=== PATIENT | male | born 1940 | race Hispanic/Latino ===

== ENCOUNTER 2018-09-06 21:03 | Inpatient (IN) | payer MEDICARE ==
[2018-09-06 22:40] LABS: #Eosinphils 0.2 thou/uL (0.0-0.7); #Lymphocytes 1.8 thou/uL (1.20-3.40); #Monocytes 0.9 thou/uL (0.11-0.59); #Neutrophils 6.1 thou/uL (1.40-6.50); %Basophils 0.4 % (0.0-1.0); %Lymphocytes 20.1 % (21.0-51.0); %Monocytes 10.2 % (0.0-10.0); %Neutrophils 67.4 % (42.0-75.0); Mean Corpuscular HGB CONC 32.5 g/dL (32.0-36.0); Mean Corpuscular Hemoglobin 30.7 pg (27.0-31.0); Mean Corpuscular Volume 94.4 fL (78.0-98.0); Mean Platelet Volume 7.2 fL (7.4-10.4); Platelet Count 238 thou/uL (130-400); RBC Distribution Width 12.5 % (11.5-14.5); Red Blood Cell (RBC) Count 4.56 mill/uL (4.70-6.10); White Blood Cell (WBC) Count 9.1 thou/uL (4.8-10.8)
[2018-09-06] MEDS ORDERED: Ondansetron PF 4 MG/2 ML Vial ONE (22:49)
[2018-09-06] MEDS ORDERED: Famotidine/PF 20 mg/2ml Vial ONE (22:49)
[2018-09-06 23:04] LABS: ALT (SGPT) 94 U/L (8-55); AST (SGOT) 46 U/L (5-34); Alkaline Phosphatase 135 U/L (40-150); Anion Gap 11 mmol/L (10-20); BUN (Urea Nitrogen) 26 mg/dL (8.4-25.7); Bilirubin, Total 0.3 mg/dL (0.2-1.2); Calc. Creatinine Clearance 0 mL/min (70-130); Calcium 8.5 mg/dL (7.8-10.44); Carbon Dioxide 29 mmol/L (23-31); Chloride 94 mmol/L (98-107); Estimated GFR-MDRD 60; Globulin 3.8 g/dL (2.4-3.5); Glucose 139 mg/dL (83-110); Lipase 47 U/L (8-78); Potassium 4.1 mmol/L (3.5-5.1); Protein, Total 7.8 g/dL (5.8-8.1); Sodium 130 mmol/L (136-145)
[2018-09-06 23:35] LABS: CKMB 2.6 ng/mL (0-6.6); Troponin I Less than 0.010 ng/mL (< 0.028)
[2018-09-06] MEDS ORDERED: Metoclopramide HCl 10 MG/2 ML VIAL ONE (23:50)
[2018-09-06] MEDS ORDERED: Pantoprazole 40 MG VIAL ONE (23:50)
[2018-09-06] MEDS ORDERED: Water For Inject, Bacteriostat 0 ML ONE (23:51)
[2018-09-07] MEDS ORDERED: Lactated Ringer's 1,000 ML IV SCH (04:00)
[2018-09-07] MEDS ORDERED: Ondansetron ODT 4 MG TAB SL PRN (04:00)
[2018-09-07] MEDS ORDERED: Acetaminophen 325 MG TAB PO PRN (04:00)
[2018-09-07] MEDS ORDERED: Ondansetron PF 4 MG/2 ML Vial IVP PRN (04:00)
[2018-09-07 04:05] VITALS: BMI 27.8
[2018-09-07] MEDS ORDERED: Prevnar 13-Val Conj/PF 0.5 ML SYRINGE IM ONE (09:00)
[2018-09-07] MEDS: Lisinopril 10 MG TAB PO SCH (09:35)
[2018-09-07] MEDS: Pantoprazole 40 MG VIAL IVP SCH ×2 (09:35→20:48)
[2018-09-07] MEDS: Tamsulosin HCl 0.4 MG CAP PO SCH (09:36)
[2018-09-07] MEDS: Primidone 250 MG TAB PO SCH ×2 (09:36→20:48)
[2018-09-07 09:49] LABS: Hemoglobin 11.9 g/dL (14.0-18.0)
--- NOTE | 2018-09-07 11:59 | HP ---
DATE OF ADMISSION: 09/07/2018 PRIMARY CARE PHYSICIAN: Yolanda Marroquin in [place]. HISTORY OF PRESENT ILLNESS: The patient presented to the ER on 09/06/2018 for evaluation of vomiting, diarrhea, nausea, reports vomiting brown fluid coffee ground in appearance, of last week and reports hiccups since last Thursday. He was seen at the ED at [facility] on 09/05/2018. Patient reports he had a CT scan, lab work and was sent home with the recommendation for a GI consult. Patient continued to have nausea, vomiting, had one episode of diarrhea and presented to the ER at [place] for further evaluation. Daughter is at bedside and reports the patient has not had any nausea, vomiting , diarrhea since they were admitted in the early hours of this morning. The patient reports abdominal pain has resolved. Denies any nausea currently. Patient did have a positive guaiac and was admitted for further evaluation to the observation unit. PAST MEDICAL HISTORY: Includes epilepsy. The patient is legally blind, has hypertension, hyperlipidemia, BPH, seasonal allergies, and GERD. CVA several years ago with some dysphagia that required a feeding tube, but was eventually removed and the patient is able to feed himself at this point. Daughter thinks EGD and colonoscopy may have been done a year ago at [facility]. PAST SURGICAL HISTORY: Includes a cholecystectomy. SOCIAL HISTORY: The patient lives at home, is cared for by daughters and a niece. Denies drinking, denies smoking, although he used to smoke in the 1980s. Denies any illicit drug use. FAMILY HISTORY: Not contributory in this case. REVIEW OF SYSTEMS: Constitutional: Denies chills, denies fever. Eyes: Denies eye pain. He is legally blind. ENT: Denies rhinorrhea, sore throat. Cardiovascular: Denies any chest pain, palpitations. Respiratory: Denies cough, shortness of breath. Gastrointestinal: Did report abdominal pain, epigastric yesterday, diarrhea, did report nausea, vomiting. Denies constipation. Genitourinary: Male, denies dysuria or hematuria. Musculoskeletal: Denies back pain. Daughter reports patient does fall occasionally due to near blindness, denies current injury or neck pain. Skin: Denies rash, skin changes. Neurologic: Denies headache. Denies any focal changes. Hematologic: Denies abnormal blood clotting. ALLERGY: PCNS MEDICATIONS: Mariposa 180mg po daily, Lisinopril 10mg po daily, Zofran 4mg po q6h prn, Phenytoin 100mg po bid, Primadone 250mg po bid, Flomax 0.4mg po daily PHYSICAL EXAMINATION: VITAL SIGNS: Temperature is 99, pulse is 76, respirations are 20, pulse ox 95 on room air, blood pressure 143/67. CONSTITUTIONAL: The patient is nontoxic appearing. The patient appears pain free. He is alert and oriented to person, place and time. HEAD: Atraumatic, normocephalic. ENT: Mucous membranes are moist. NECK: Normal range of motion. Trachea is midline. No tenderness. RESPIRATORY: Breath sounds are clear bilaterally. No rales or rhonchi noted. CARDIAC: Heart rate is a regular rate and rhythm. S1 and S2. No gallops or murmurs noted. ABDOMEN: Nontender, no distention, no mass, no peritoneal signs. BACK: Normal range of motion, no tenderness. EXTREMITIES: Upper extremity: Normal range of motion. Sensation intact. Radial pulses normal. Lower extremity: Normal range of motion. Sensation intact. Pedal pulse intact. No edema noted. NEUROLOGICAL: Oriented to person, place and time. SKIN: Warm, dry, normal in color. LABORATORY DATA: First troponin is negative. CK-MB is 2.6. CK is 94. Gastric positive for occult blood. Sodium 130, potassium 4.1, chloride 94, carbon dioxide 29, anion gap is 11, BUN is 26, creatinine is 1.18, estimated GFR 60, glucose 139. Globulin is 3.8, alkaline phosphatase is 135, AST is 46, ALT is 94. White blood cell count is 9.1, hemoglobin is 14, hematocrit is 43, platelets is 238. ASSESSMENT AND PLAN: 1. Intractable nausea and vomiting. Patient will be kept n.p.o., given maintenance fluids, IV Zofran as needed. 2. Possible upper gastrointestinal bleed, the patient will have serial H&H performed, given protonix, GI consult ordered. 3. Hypertension: The patient will be maintained on home medications. 4. Hyperlipidemia. The patient will have lipids tested. 5. Epilepsy. The patient will be maintained on Dilantin. 6. BPH: The patient will be maintained on Flomax as prescribed. 7. DVT prophalyxis: [facility] stay will depend on clinical course. MTDD
[2018-09-07] MEDS ORDERED: Lidocaine 1% PF 5 ML VIAL ONE (13:42)
[2018-09-07] MEDS ORDERED: PROPOFOL 200 MG/20 ML VIAL ONE (13:42)
--- NOTE | 2018-09-07 16:34 | PDOC.EVN ---
Event Note - Event Note Event Note: patient interviewed and examined. clinical course discussed with Helena Velázquez RAYON CONER. agree with Tx and plans
[2018-09-07] MEDS ORDERED: Ondansetron HCl/PF 4 MG/2 ML Vial IVP PRN (16:37)
[2018-09-07] MEDS: Dextrose 5 % And 0.9 % NaCl 1,000 ML IV SCH (17:58)
--- NOTE | 2018-09-07 20:50 | CON ---
DATE OF CONSULTATION: 09/07/2018 CONSULTING PROVIDER: Melissa REZA HISTORY OF PRESENT ILLNESS: Mr. Barker is a pleasant 78-year-old gentleman who was admitted to the [facility] yesterday evening for persistent vomiting. Apparently, this started about 5 days ago, last Thu, today is Thursday, with some vomiting. He had emesis of brown fluid and hiccups since Thursday. He states, it started after eating a very large sweet potato he cooked on the grill. He is able to handle secretions and did not like it got stuck. He went to an outside ER and had a CAT scan of abdo men and pelvis. This was at one of the [facility] facilities, for upper abdominal pain. There received IV fluids, Zofran, and an outpatient referral to Gastroenterology. When he did not improve , his family brought him here. At the outside facility, he did have a CAT scan of the abdomen and pe lvis which showed inflammation in the distal esophagus and somewhat distended stomach and atheroscler otic vessel disease and enlarged prostate as well. There were no acute abdominal processes ongoing. Atherosclerotic vessel disease did involve his coronary arteries as well. He did have some small in guinal hernias bilaterally with no herniation of bowel. His labs there were notable for normal comp metabolic profile, lipase of 214, white count of 8, hemoglobin of 14 and platelet count of 232 with n ormal differential. Here in the emergency room, he was treated with IV Protonix, Reglan, Pepcid, Zof ran, and a liter of fluid, and he was subsequently admitted. Here, his hemoglobin yesterday was 14 a nd then 11.9 today. His baseline hemoglobin has been here in 2012 was 11.4 and 11.2. His comp met p rofile is notable for sodium of 130, glucose 139, AST and ALT are 46 and 94, albumin of 4, lipase of 47. Lactate 0.6. CK-MB 2.6, troponin less than 0.01. CK of 94. Presently, the nurses note he has not thrown up since yesterday and he confirms the same. His epigastric pain is better. PAST MEDICAL HISTORY: He has had seizures since age 19, has been on chronic medications. He is lega lly blind. Family is not clear. Recently, he has some hypertension, hyperlipidemia, BPH, and previo us TURP. He has a history of reflux about a year ago. He had a feeding tube for a while. Apparentl y, he had a stroke which required a feeding tube for while. He was in rehabilitation for a couple of months. There is a previous history of EGD at this hospital with severe LA grade D esophagitis back in 2013 with a similar presentation. SOCIAL HISTORY: Patient lives at home in the [facility], lives with daughter. They note, he gaspar s not drink alcohol, really never had. He stopped smoking in the 80s, does not use drugs. FAMILY HISTORY: Negative for colon cancer or liver disease. REVIEW OF SYSTEMS: Patient denies any dysphagia or odynophagia this point in time. Denies any chest pain or shortness of breath. Denies any melena or rectal bleeding. Denies sore throat, headaches. ALLERGIES: PENICILLIN. MEDICATIONS: Mariposa, lisinopril, Zofran, Dilantin, primidone, Flomax. MEDICATIONS HERE: He is on Protonix 40 IV q.12 hours., Dilantin 100 mg b.i.d., primidone, normal kyler ine flushes, and tamsulosin. OBJECTIVE: VITAL SIGNS: Temperature is 98.7, pulse 82, respirations 12, O2 sat 92-93% and blood pressure 151/69 . HEENT: Oropharynx without lesions. NECK: Supple without adenopathy. LUNGS: Clear. HEART: Regular rate and rhythm without clicks or murmurs. ABDOMEN: Soft, nontender. There is no rebound or guarding. X-ray from outside facility, report reviewed and labs here and there reviewed. ASSESSMENT: Coffee-ground emesis and slight drop in hemoglobin back to around his baseline. Remote history of severe esophagitis with some thickening of distal esophagus on CAT scan at the outside [facility] yesterday or the day before. This is likely esophagitis, probably from reflux, but other etiol ogies to be considered. Peptic ulcer is be a possibility and NSAID use. RECOMMENDATIONS: 1. Start IV fluids. 2. EGD today. Risks, benefits, and possible complications discussed with the patient's daughter and the patient, and they wished to proceed.
--- NOTE | 2018-09-08 04:45 | OP ---
DATE OF SERVICE: 09/07/2018 PREPROCEDURE DIAGNOSES: 1. Recurrent vomiting. 2. Epigastric pain. 3. Abnormal CAT scan of the chest with thickened esophagus. 4. Coffee-ground emesis with mild anemia. POSTPROCEDURE DIAGNOSES: 1. Severe distal esophagitis consistent with LA grade D erosive esophagitis, biopsied to rule out Ca ndida or other infections. 2. Normal stomach. 3. Normal duodenum. RECOMMENDATIONS: IV Protonix b.i.d., liquid diet, advance as tolerated, patient needs to be on lifel charisma PPIs after discharge. PROCEDURE IN DETAIL: After the patient was informed of the risks, benefits, and possible complicatio ns of endoscopy including perforation, bleeding, reactions to medication and aspiration, informed con sent was obtained. The patient was brought to the endoscopy suite where he was sedated in gradual fa shion. Once he was comfortable, a bite block was placed in the incisural orifice. The endoscope was advanced through the esophagus, stomach, second and third portion of the duodenum and slowly removed . The esophagus notable for severe erosive esophagitis, circumferential in the distal third of the e sophagus, and then streaks in the middle third. Biopsies were taken to rule out infection or other e tiologies, but this appears to be severe reflux esophagitis, may be this is a injury. No overt strictures were seen, but , we could not really evaluate the esophagus much further. The scope was advanced into the stomach, which was normal in forward and retroflexed views. The GE junction w as normal in retroflexed views. The distal stomach was normal. The duodenum was normal to the third portion. The stomach was then desufflated. The scope was removed. The patient tolerated the proce dure well with no complications.
[2018-09-08] MEDS: Dextrose 5 % And 0.9 % NaCl 1,000 ML IV SCH ×2 (05:44→16:53)
--- NOTE | 2018-09-08 07:28 | PDOC.PN ---
- Subjective Encounter Start Date: 09/08/18 Encounter Start Time: 07:26 Subjective: no nausea/vomiting - Objective MAR Reviewed: Yes Vital Signs & Weight: Vital Signs (12 hours) Temp Pulse Resp BP Pulse Ox 09/08/18 04:00 97.9 F 66 20 150/67 H 95 09/07/18 19:45 97.5 F L 67 18 184/78 H 95 Weight Admit Weight 172 lb 12.8 oz Weight 172 lb 12.8 oz I&O: 09/07/18 09/08/18 09/09/18 06:59 06:59 06:59 Intake Total 63 1012 Output Total 275 1450 Balance -212 -438 Result Diagrams: 09/07/18 17:34 09/06/18 22:35 Phys Exam - Physical Examination Neck: no JVD Respiratory: clear to auscultation bilateral Cardiovascular: RRR, no significant murmur Gastrointestinal: soft, non-tender, positive bowel sounds Musculoskeletal: no edema Dx/Plan (1) Anemia due to blood loss, acute Code(s): D62 - ACUTE POSTHEMORRHAGIC ANEMIA Status: Acute (2) HTN (hypertension) Code(s): I10 - ESSENTIAL (PRIMARY) HYPERTENSION Status: Acute (3) Seizure disorder Code(s): G40.909 - EPILEPSY, UNSP, NOT INTRACTABLE, WITHOUT STATUS EPILEPTICUS Status: Acute (4) erosive esophagitis with bleeding Status: Acute - Plan post EGD, on PPI q12h iv -: no recurrent hemetemasis -: discuss with GI * .
[2018-09-08] MEDS: Tamsulosin HCl 0.4 MG CAP PO SCH (09:20)
[2018-09-08] MEDS: Pantoprazole 40 MG VIAL IVP SCH ×2 (09:20→20:44)
[2018-09-08] MEDS: Primidone 250 MG TAB PO SCH ×2 (09:20→20:45)
[2018-09-08] MEDS: Lisinopril 10 MG TAB PO SCH (09:20)
[2018-09-08] MEDS ORDERED: Labetalol HCl 100 MG/20 ML VIAL SLOW IVP PRN (15:38)
--- NOTE | 2018-09-09 08:12 | PDOC.PN ---
- Subjective Encounter Start Date: 09/09/18 Encounter Start Time: 08:11 Subjective: no nausea, abd pain - Objective MAR Reviewed: Yes Vital Signs & Weight: Vital Signs (12 hours) Temp Pulse Resp BP Pulse Ox 09/09/18 07:16 98.1 F 64 22 H 152/68 H 95 09/09/18 04:00 98.8 F 70 19 166/77 H 95 09/08/18 23:10 98 09/08/18 20:45 97.8 F 70 18 178/84 H 99 Weight Admit Weight 172 lb 12.8 oz Weight 164 lb 2 oz I&O: 09/08/18 09/09/18 09/10/18 06:59 06:59 06:59 Intake Total 2115 880 1500 Output Total 3500 2800 775 Balance -1385 -1920 725 Result Diagrams: 09/07/18 17:34 09/06/18 22:35 Phys Exam - Physical Examination Neck: no JVD Respiratory: clear to auscultation bilateral Cardiovascular: RRR, no significant murmur Gastrointestinal: soft, positive bowel sounds Musculoskeletal: no edema Dx/Plan (1) Anemia due to blood loss, acute Code(s): D62 - ACUTE POSTHEMORRHAGIC ANEMIA Status: Acute (2) HTN (hypertension) Code(s): I10 - ESSENTIAL (PRIMARY) HYPERTENSION Status: Acute (3) Seizure disorder Code(s): G40.909 - EPILEPSY, UNSP, NOT INTRACTABLE, WITHOUT STATUS EPILEPTICUS Status: Acute (4) erosive esophagitis with bleeding Status: Acute - Plan change PPI to po -: advance diet -: cbc- FU * .
[2018-09-09 09:03] LABS: #Eosinphils 0.4 thou/uL (0.0-0.7); #Lymphocytes 1.8 thou/uL (1.20-3.40); #Monocytes 0.7 thou/uL (0.11-0.59); #Neutrophils 4.5 thou/uL (1.40-6.50); %Basophils 0.5 % (0.0-1.0); %Lymphocytes 24.3 % (21.0-51.0); %Monocytes 9.8 % (0.0-10.0); %Neutrophils 60.4 % (42.0-75.0); Hemoglobin 13.5 g/dL (14.0-18.0); Mean Corpuscular Hemoglobin 30.7 pg (27.0-31.0); Mean Corpuscular Volume 95.9 fL (78.0-98.0); Mean Platelet Volume 7.8 fL (7.4-10.4); Platelet Count 245 thou/uL (130-400); RBC Distribution Width 12.5 % (11.5-14.5); White Blood Cell (WBC) Count 7.4 thou/uL (4.8-10.8)
[2018-09-09] MEDS: Tamsulosin HCl 0.4 MG CAP PO SCH (10:10)
[2018-09-09] MEDS: Lisinopril 10 MG TAB PO SCH (10:10)
[2018-09-09] MEDS: Primidone 250 MG TAB PO SCH (10:10)
[2018-09-09] MEDS: Dextrose 5 % And 0.9 % NaCl 1,000 ML IV SCH (11:57)
[2018-09-09] MEDS ORDERED: hydrALAZINE 20 MG/ML VIAL SLOW IVP PRN (12:20)
--- NOTE | 2018-09-09 14:40 | DIS ---
DATE OF ADMISSION: 09/07/2018 DATE OF DISCHARGE: 09/09/2018 PRIMARY CARE PROVIDER: Libertad Marroquin M.D. DISCHARGE DISPOSITION: Home. FINAL DIAGNOSES: Gastrointestinal hemorrhage, erosive esophagitis, anemia secondary to acute blood l oss, hypertension, epilepsy. DISCHARGE MEDICATIONS: New, Protonix 40 mg p.o. b.i.d. for a month, Zestril 10 mg a day, Flomax 0.4 mg a day, Dilantin 100 mg twice a day, primidone 250 mg twice a day, Mariposa 180 daily p.r.n., Zofran 4 mg q.4 hours p.r.n. ALLERGIES: PENICILLIN. DIET: Heart healthy. PENDING AT THE TIME OF DISCHARGE: Pathology specimen on esophageal biopsy. CODE STATUS: FULL. HOSPITAL COURSE: The patient was admitted to [facility] through [facility]. The patient presented with nausea, vomiting up coffee-ground emesis. His initial studies, whi te count 9.1, hemoglobin 14.0. He was made n.p.o., put on IV fluids, IV Zofran. GI was consulted fo r possible upper GI bleed. He was continued on his usual medicines with sips of water. His hemoglob in dropped down to 11.9. Consultation with Dr. Lavon Solo on the day of admission and an EGD revealed severe distal esophagitis, erosive. He was placed on Protonix 40 twice a day. The patholo gy specimen revealed active esophagitis, no Pyle's epithelium, no fungal organisms, no viral cytop athic effects, no malignancy. He is being discharged now. His vital signs are stable. His hemoglob in has come back up to 13.5. He is doing well. He is desirous of going home. Vital signs are stabl e. Cardiorespiratory exam and abdominal exam was normal. FOLLOWUP: Would by [facility], Dr. Solo to be arranged. He has been requested to follow up with his PCP in 1 week. Return to the hospital for any further nausea, vomiting with c offee-ground emesis or black tarry stools.
[2018-09-09 16:38] VITALS: TEMP 98.2
[2018-09-09 20:15] VITALS: BP 168/66
== END 2018-09-09 20:10 | disposition home or self-care (01) | DRG 381 ==
LOC: ERS 21:03 → 2SW 09-07 03:15 → OBSVTOIN 09-07 17:10 → 2NO 09-07 19:46 → SURG B 09-08 23:09
PROVIDERS: ADMIT Internal Medicine; ATTEND Internal Medicine
PROC: 0DB58ZX Excision of Esophagus, Via Natural or Artificial Opening Endoscopic, Diagnostic (ICD-10-PCS; principal; 2018-09-07)
DX: K22.11 Ulcer of esophagus with bleeding (principal); D62 Acute posthemorrhagic anemia; H54.8 Legal blindness, as defined in USA; G40.909 Epilepsy, unspecified, not intractable, without status epilepticus; I10 Essential (primary) hypertension; E78.5 Hyperlipidemia, unspecified; N40.0 Benign prostatic hyperplasia without lower urinary tract symptoms; K21.0 Gastro-esophageal reflux disease with esophagitis; I69.391 Dysphagia following cerebral infarction; R13.10 Dysphagia, unspecified; Z90.49 Acquired absence of other specified parts of digestive tract; K40.20 Bilateral inguinal hernia, without obstruction or gangrene, not specified as recurrent; Z91.81 History of falling
CPT/HCPCS: 36415; 80053; 82271; 82553; 83690; 84484; 85014; 85018; 85025; 88305; 88312; 88313; 90471; 90670; 93005; 96361; 96365; 96375; C9113; G0009; J2405; J2765; S0028

== ENCOUNTER 2021-02-27 13:34 | Inpatient (IN) | payer MEDICARE ==
[2021-02-27 14:03] LABS: Hemoglobin 13.2 g/dL (14.0-18.0); Mean Corpuscular HGB CONC 31.9 g/dL (32.0-36.0); Mean Corpuscular Hemoglobin 24.8 pg (27.0-31.0); Mean Corpuscular Volume 77.9 fL (78.0-98.0); Mean Platelet Volume 8.9 fL (7.4-10.4); Platelet Count 311 thou/uL (130-400); RBC Distribution Width 15.7 % (11.5-14.5); Red Blood Cell (RBC) Count 5.33 mill/uL (4.70-6.10); White Blood Cell (WBC) Count 20.1 thou/uL (4.8-10.8)
[2021-02-27 14:08] LABS: PTT 29.1 sec (22.9-36.1); Prothrombin Time 13.5 sec (12.0-14.7)
[2021-02-27 14:23] LABS: Band 30 % (5-11); Lymphocytes 7 % (21-51); MDiff Complete? YES; Monocytes 8 % (0-10); Neutrophil 52 % (42-75); Platelet Morphology Comment Appears Adequate; Polychromasia SLIGHT = 2-3 cells (100X) (0-2/hpf); Reactive Lymphocytes 3 % (0-10); Target Cells SLIGHT = 2-5 cells (100X) (0-1/hpf)
[2021-02-27 14:32] LABS: ALT (SGPT) 66 U/L (8-55); AST (SGOT) 164 U/L (5-34); Albumin 4.3 g/dL (3.4-4.8); Alkaline Phosphatase 115 U/L (40-110); Anion Gap 18 mmol/L (10-20); BUN (Urea Nitrogen) 32 mg/dL (8.4-25.7); Bilirubin, Total 0.6 mg/dL (0.2-1.2); Calc. Creatinine Clearance 0 mL/min (70-130); Carbon Dioxide 19 mmol/L (23-31); Chloride 103 mmol/L (98-107); Globulin 4.2 g/dL (2.4-3.5); Glucose 152 mg/dL (83-110); Potassium 4.6 mmol/L (3.5-5.1); Protein, Total 8.5 g/dL (5.8-8.1); Sodium 135 mmol/L (136-145)
[2021-02-27 14:51] LABS: CKMB 80.1 ng/mL (0-6.6)
[2021-02-27] MEDS ORDERED: Aspirin 300 MG Suppository ONE (16:10)
[2021-02-27] MEDS ORDERED: Sodium Chloride 0.9% 1,000 ML IV SCH (17:15)
[2021-02-27 18:08] LABS: Troponin I 0.138 ng/mL (< 0.028)
[2021-02-27 21:51] LABS: Troponin I 0.167 ng/mL (< 0.028)
[2021-02-27] MEDS: Sodium Chloride 0.9% 1,000 ML IV SCH (23:07)
[2021-02-28 00:26] LABS: Bacteria/HPF None Seen HPF (None Seen); Bilirubin Negative (Negative); Blood, Urine 3+ (Negative); Clarity Clear (Clear); Glucose, Urine (Dipstick) Normal (Negative); Ketone, Urine Negative (Negative); Leukocyte Negative Leu/uL (Negative); Nitrite Negative (Negative); Protein, Urine (Dipstick) 50 mg/dL (Neg-Trace); RBC/HPF 0-3 HPF (0-3); Specific Gravity, Urine 1.019 (1.002-1.036); Squamous Epithelial 0-3 HPF (0-3); Urobilinogen Normal mg/dL (Less than 2); WBC/HPF 0-3 HPF (0-3)
[2021-02-28] MEDS: Fosphenytoin Sodium 100 MG in Sodium Chloride 0.9% 50 ML IVPB SCH ×4 (01:22→23:37)
[2021-02-28 02:26] VITALS: BMI 29.9
[2021-02-28 05:04] LABS: SARS-CoV-2 PCR by NAA Not Detected (NotDetected)
[2021-02-28 06:25] LABS: ALT (SGPT) 64 U/L (8-55); AST (SGOT) 132 U/L (5-34); Albumin 3.5 g/dL (3.4-4.8); Alkaline Phosphatase 90 U/L (40-110); Anion Gap 14 mmol/L (10-20); BUN (Urea Nitrogen) 29 mg/dL (8.4-25.7); Bilirubin, Total 0.5 mg/dL (0.2-1.2); Calc. Creatinine Clearance 57 mL/min (70-130); Calcium 8.5 mg/dL (7.8-10.44); Carbon Dioxide 21 mmol/L (23-31); Cardiac Risk 2.2 (Less than 4.5); Chloride 107 mmol/L (98-107); Cholesterol 159 mg/dl (< 200 Desired); Globulin 3.9 g/dL (2.4-3.5); Glucose 141 mg/dL (83-110); HDL Cholesterol 73 mg/dL (>60 Neg Risk); LDL Cholesterol, Calculated 67 mg/dL; Potassium 3.9 mmol/L (3.5-5.1); Protein, Total 7.4 g/dL (5.8-8.1); Sodium 138 mmol/L (136-145); Triglycerides 93 mg/dL (Less than 150)
[2021-02-28 07:26] LABS: Hemoglobin 11.4 g/dL (14.0-18.0); Mean Corpuscular HGB CONC 29.5 g/dL (32.0-36.0); Mean Corpuscular Hemoglobin 23.2 pg (27.0-31.0); Mean Corpuscular Volume 78.7 fL (78.0-98.0); Mean Platelet Volume 8.9 fL (7.4-10.4); Platelet Count 276 thou/uL (130-400); RBC Distribution Width 15.8 % (11.5-14.5); Red Blood Cell (RBC) Count 4.93 mill/uL (4.70-6.10); White Blood Cell (WBC) Count 14.4 thou/uL (4.8-10.8)
[2021-02-28 08:01] LABS: #Eosinphils 0.2 thou/uL (0.0-0.7); #Lymphocytes 2.3 thou/uL (1.20-3.40); #Monocytes 1.9 thou/uL (0.11-0.59); #Neutrophils 9.8 thou/uL (1.40-6.50); %Basophils 0.3 % (0.0-1.0); %Eosinophils 1.5 % (0.0-10.0); %Lymphocytes 16.3 % (21.0-51.0); %Monocytes 13.5 % (0.0-10.0); %Neutrophils 68.5 % (42.0-75.0)
[2021-02-28 08:02] LABS: Band 5 % (5-11); Eosinophils 2 % (0-10); Hypochromia SLIGHT = 6-15 cells (100X) (0-5/hpf); Lymphocytes 21 % (21-51); MDiff Complete? YES; Microcytosis SLIGHT = 6-15 cells (100X) (0-5/hpf); Monocytes 13 % (0-10); Neutrophil 59 % (42-75); Polychromasia SLIGHT = 2-3 cells (100X) (0-2/hpf)
[2021-02-28] MEDS: Enoxaparin Sodium 40 MG/0.4 ML SYRINGE SC SCH (08:35)
[2021-02-28] MEDS: Sodium Chloride 0.9% 1,000 ML IV SCH ×3 (08:40→23:34)
[2021-02-28] MEDS: Aspirin 81 mg Enteric Coated Tablet PO SCH (08:44)
[2021-02-28] MEDS: Tamsulosin HCl 0.4 MG CAP PO SCH (08:44)
[2021-02-28] MEDS ORDERED: Finasteride 5 MG TAB PO SCH (09:00)
[2021-02-28] MEDS ORDERED: Insulin Regular 300 UNITS/3 ML VIAL SC PRN (13:27)
[2021-02-28] MEDS ORDERED: Dextrose 5% in Water 1,000 ML IV PRN (13:27)
[2021-02-28] MEDS ORDERED: Dextrose 50% Abboject 50 ML SYRINGE SLOW IVP PRN (13:27)
[2021-02-28] MEDS: Acetaminophen 325 MG TAB PO PRN (14:21)
[2021-02-28] MEDS: Primidone 250 MG TAB PO SCH (21:04)
[2021-03-01 05:50] LABS: ALT (SGPT) 60 U/L (8-55); AST (SGOT) 93 U/L (5-34); Albumin 3.2 g/dL (3.4-4.8); Alkaline Phosphatase 83 U/L (40-110); Anion Gap 11 mmol/L (10-20); BUN (Urea Nitrogen) 19 mg/dL (8.4-25.7); Bilirubin, Total 0.4 mg/dL (0.2-1.2); Calc. Creatinine Clearance 74 mL/min (70-130); Calcium 8.4 mg/dL (7.8-10.44); Carbon Dioxide 23 mmol/L (23-31); Cardiac Risk 2.4 (Less than 4.5); Chloride 105 mmol/L (98-107); Cholesterol 153 mg/dl (< 200 Desired); Globulin 4.1 g/dL (2.4-3.5); Glucose 141 mg/dL (83-110); HDL Cholesterol 63 mg/dL (>60 Neg Risk); LDL Cholesterol, Calculated 67 mg/dL; Magnesium 2.1 mg/dL (1.6-2.6); Potassium 4.2 mmol/L (3.5-5.1); Protein, Total 7.3 g/dL (5.8-8.1); Sodium 135 mmol/L (136-145); Triglycerides 114 mg/dL (Less than 150)
[2021-03-01] MEDS: Enoxaparin Sodium 40 MG/0.4 ML SYRINGE SC SCH (09:13)
[2021-03-01] MEDS: Tamsulosin HCl 0.4 MG CAP PO SCH (09:14)
[2021-03-01] MEDS: Aspirin 81 mg Enteric Coated Tablet PO SCH (09:14)
[2021-03-01] MEDS: Finasteride 5 MG TAB PO SCH (09:14)
[2021-03-01] MEDS: Loratadine 10 MG TAB PO SCH (09:14)
[2021-03-01] MEDS: Primidone 250 MG TAB PO SCH ×2 (09:14→21:24)
[2021-03-01] MEDS: Fosphenytoin Sodium 100 MG in Sodium Chloride 0.9% 50 ML IVPB SCH (09:27)
[2021-03-01] MEDS: Acetaminophen 325 MG TAB PO PRN (16:09)
[2021-03-02 05:44] LABS: #Basophils 0.1 thou/uL (0.0-0.2); #Eosinphils 0.7 thou/uL (0.0-0.7); #Lymphocytes 1.8 thou/uL (1.20-3.40); #Monocytes 0.9 thou/uL (0.11-0.59); #Neutrophils 8.1 thou/uL (1.40-6.50); %Basophils 0.7 % (0.0-1.0); %Eosinophils 5.9 % (0.0-10.0); %Lymphocytes 15.3 % (21.0-51.0); %Neutrophils 70.1 % (42.0-75.0); Hemoglobin 10.8 g/dL (14.0-18.0); Mean Corpuscular HGB CONC 30.5 g/dL (32.0-36.0); Mean Corpuscular Hemoglobin 24.4 pg (27.0-31.0); Mean Platelet Volume 8.8 fL (7.4-10.4); Platelet Count 254 thou/uL (130-400); RBC Distribution Width 15.6 % (11.5-14.5); Red Blood Cell (RBC) Count 4.44 mill/uL (4.70-6.10); White Blood Cell (WBC) Count 11.5 thou/uL (4.8-10.8)
[2021-03-02 06:06] LABS: ALT (SGPT) 53 U/L (8-55); AST (SGOT) 55 U/L (5-34); Albumin 3.2 g/dL (3.4-4.8); Alkaline Phosphatase 81 U/L (40-110); Anion Gap 12 mmol/L (10-20); BUN (Urea Nitrogen) 12 mg/dL (8.4-25.7); Bilirubin, Total 0.4 mg/dL (0.2-1.2); CK (CPK) 1483 U/L (30-200); Calc. Creatinine Clearance 76 mL/min (70-130); Calcium 8.4 mg/dL (7.8-10.44); Carbon Dioxide 27 mmol/L (23-31); Chloride 102 mmol/L (98-107); Globulin 3.6 g/dL (2.4-3.5); Glucose 141 mg/dL (83-110); Potassium 3.6 mmol/L (3.5-5.1); Protein, Total 6.8 g/dL (5.8-8.1); Sodium 137 mmol/L (136-145)
[2021-03-02] MEDS: Finasteride 5 MG TAB PO SCH (10:39)
[2021-03-02] MEDS: Primidone 250 MG TAB PO SCH ×2 (10:40→20:54)
[2021-03-02] MEDS: Loratadine 10 MG TAB PO SCH (10:40)
[2021-03-02] MEDS: Enoxaparin Sodium 40 MG/0.4 ML SYRINGE SC SCH (10:40)
[2021-03-02] MEDS: Tamsulosin HCl 0.4 MG CAP PO SCH (10:40)
[2021-03-02] MEDS: Aspirin 81 mg Enteric Coated Tablet PO SCH (10:40)
[2021-03-02] MEDS ORDERED: traMADol HCl 50 MG TAB PO PRN (16:22)
[2021-03-02] MEDS: Acetaminophen 325 MG TAB PO PRN (16:29)
[2021-03-03] MEDS: Finasteride 5 MG TAB PO SCH (08:43)
[2021-03-03] MEDS: Enoxaparin Sodium 40 MG/0.4 ML SYRINGE SC SCH (08:43)
[2021-03-03] MEDS: Lisinopril 10 MG TAB PO SCH (08:43)
[2021-03-03] MEDS: Loratadine 10 MG TAB PO SCH (08:43)
[2021-03-03] MEDS: Primidone 250 MG TAB PO SCH ×2 (08:43→21:54)
[2021-03-03] MEDS: metFORMIN 500 MG TAB PO SCH (08:43)
[2021-03-03] MEDS: Aspirin 81 mg Enteric Coated Tablet PO SCH (08:43)
[2021-03-03] MEDS: Tamsulosin HCl 0.4 MG CAP PO SCH (08:44)
[2021-03-03] MEDS: traMADol HCl 50 MG TAB PO PRN (11:16)
[2021-03-04 05:46] LABS: #Eosinphils 0.6 thou/uL (0.0-0.7); #Lymphocytes 1.9 thou/uL (1.20-3.40); #Monocytes 1.1 thou/uL (0.11-0.59); #Neutrophils 4.9 thou/uL (1.40-6.50); %Basophils 0.4 % (0.0-1.0); %Eosinophils 6.8 % (0.0-10.0); %Monocytes 13.3 % (0.0-10.0); %Neutrophils 57.5 % (42.0-75.0); Hemoglobin 11.2 g/dL (14.0-18.0); Mean Corpuscular HGB CONC 31.4 g/dL (32.0-36.0); Mean Corpuscular Volume 79.8 fL (78.0-98.0); Mean Platelet Volume 8.3 fL (7.4-10.4); Platelet Count 303 thou/uL (130-400); Red Blood Cell (RBC) Count 4.47 mill/uL (4.70-6.10); White Blood Cell (WBC) Count 8.5 thou/uL (4.8-10.8)
[2021-03-04 06:20] LABS: ALT (SGPT) 63 U/L (8-55); AST (SGOT) 53 U/L (5-34); Albumin 3.4 g/dL (3.4-4.8); Alkaline Phosphatase 89 U/L (40-110); Anion Gap 12 mmol/L (10-20); BUN (Urea Nitrogen) 10 mg/dL (8.4-25.7); Bilirubin, Total 0.4 mg/dL (0.2-1.2); CK (CPK) 503 U/L (30-200); Calc. Creatinine Clearance 69 mL/min (70-130); Calcium 8.7 mg/dL (7.8-10.44); Carbon Dioxide 29 mmol/L (23-31); Chloride 100 mmol/L (98-107); Dilantin 11.5 ug/mL (10.0-20.0); Globulin 3.8 g/dL (2.4-3.5); Glucose 138 mg/dL (83-110); Potassium 3.6 mmol/L (3.5-5.1); Protein, Total 7.2 g/dL (5.8-8.1); Sodium 137 mmol/L (136-145)
[2021-03-04] MEDS: Finasteride 5 MG TAB PO SCH (07:54)
[2021-03-04] MEDS: metFORMIN 500 MG TAB PO SCH (07:54)
[2021-03-04] MEDS: Aspirin 81 mg Enteric Coated Tablet PO SCH (07:54)
[2021-03-04] MEDS: Lisinopril 10 MG TAB PO SCH (07:54)
[2021-03-04] MEDS: Loratadine 10 MG TAB PO SCH (07:54)
[2021-03-04] MEDS: Primidone 250 MG TAB PO SCH ×3 (07:55→21:32)
[2021-03-04] MEDS: Tamsulosin HCl 0.4 MG CAP PO SCH (07:55)
[2021-03-04] MEDS: Enoxaparin Sodium 40 MG/0.4 ML SYRINGE SC SCH (07:55)
[2021-03-04] MEDS: traMADol HCl 50 MG TAB PO PRN (10:10)
[2021-03-04] MEDS ORDERED: Lisinopril 10 MG TAB PO SCH (17:00)
[2021-03-05] MEDS: metFORMIN 500 MG TAB PO SCH (08:17)
[2021-03-05] MEDS: Enoxaparin Sodium 40 MG/0.4 ML SYRINGE SC SCH (08:17)
[2021-03-05] MEDS: Finasteride 5 MG TAB PO SCH (08:17)
[2021-03-05] MEDS: Aspirin 81 mg Enteric Coated Tablet PO SCH (08:17)
[2021-03-05] MEDS: Primidone 250 MG TAB PO SCH (08:18)
[2021-03-05] MEDS: Loratadine 10 MG TAB PO SCH (08:18)
[2021-03-05] MEDS: Tamsulosin HCl 0.4 MG CAP PO SCH (08:18)
[2021-03-05] MEDS ORDERED: Lisinopril 10 MG TAB PO SCH (09:00)
[2021-03-05 15:35] VITALS: TEMP 97.7
[2021-03-05] MEDS: traMADol HCl 50 MG TAB PO PRN (16:05)
[2021-03-05 16:46] VITALS: BP 154/72
== END 2021-03-05 18:10 | DRG 101 ==
LOC: ERS 13:34 → ERHOLD 15:31 → 2SE 16:47 → OBSVTOIN 18:00 → 2SE 20:39
PROVIDERS: ADMIT Hospitalist; ATTEND Internal Medicine
DX: G40.919 Epilepsy, unspecified, intractable, without status epilepticus (principal); N17.9 Acute kidney failure, unspecified; M62.82 Rhabdomyolysis; G45.9 Transient cerebral ischemic attack, unspecified; D62 Acute posthemorrhagic anemia; E87.1 Hypo-osmolality and hyponatremia; N40.0 Benign prostatic hyperplasia without lower urinary tract symptoms; Z88.0 Allergy status to penicillin; E11.9 Type 2 diabetes mellitus without complications; Z86.73 Personal history of transient ischemic attack (TIA), and cerebral infarction without residual deficits; M19.90 Unspecified osteoarthritis, unspecified site; Z79.84 Long term (current) use of oral hypoglycemic drugs; E86.0 Dehydration; E88.09 Other disorders of plasma-protein metabolism, not elsewhere classified
CPT/HCPCS: 36415; 36416; 70450; 70551; 72125; 80053; 80061; 80185; 81001; 82550; 82553; 83735; 84484; 85025; 85610; 85730; 87635; 93005; 95712; 95819; 95957; 96365; G0378; J1650; J1815; Q2009; U0003; U0005

== ENCOUNTER 2022-03-03 12:17 | Inpatient (IN) | payer MEDICARE ==
[~2022-03-03 12:17] MED LIST: Iopamidol-370 76% 500 ML 1 ML ONE
[2022-03-03 12:48] LABS: #Basophils 0.1 thou/uL (0.0-0.2); #Eosinphils 0.3 thou/uL (0.0-0.7); #Lymphocytes 1.9 thou/uL (1.20-3.40); #Neutrophils 5.5 thou/uL (1.40-6.50); %Basophils 0.9 % (0.0-1.0); %Lymphocytes 21.6 % (21.0-51.0); %Monocytes 11.1 % (0.0-10.0); %Neutrophils 62.5 % (42.0-75.0); Hemoglobin 11.9 g/dL (14.0-18.0); Mean Corpuscular HGB CONC 31.5 g/dL (32.0-36.0); Mean Corpuscular Hemoglobin 25.3 pg (27.0-31.0); Mean Corpuscular Volume 80.5 fL (78.0-98.0); Mean Platelet Volume 7.9 fL (7.4-10.4); Platelet Count 273 thou/uL (130-400); RBC Distribution Width 14.4 % (11.5-14.5); Red Blood Cell (RBC) Count 4.68 mill/uL (4.70-6.10); White Blood Cell (WBC) Count 8.8 thou/uL (4.8-10.8)
[2022-03-03 13:05] LABS: ALT (SGPT) 29 U/L (8-55); AST (SGOT) 27 U/L (5-34); Alkaline Phosphatase 104 U/L (40-110); Anion Gap 15 mmol/L (10-20); BUN (Urea Nitrogen) 15 mg/dL (8.4-25.7); Bilirubin, Total 0.2 mg/dL (0.2-1.2); Calc. Creatinine Clearance 0 mL/min (70-130); Calcium 8.9 mg/dL (7.8-10.44); Carbon Dioxide 23 mmol/L (23-31); Chloride 97 mmol/L (98-107); Globulin 3.7 g/dL (2.4-3.5); Glucose 143 mg/dL (83-110); Lipase 46 U/L (8-78); Potassium 4.9 mmol/L (3.5-5.1); Protein, Total 7.7 g/dL (5.8-8.1); Sodium 130 mmol/L (136-145)
[2022-03-03 13:47] LABS: CKMB 3.3 ng/mL (0-6.6)
[2022-03-03] MEDS ORDERED: Enoxaparin Sodium 80 MG/0.8 ML SYRINGE ONE (15:54)
[2022-03-03 16:45] LABS: Troponin I 2.138 ng/mL (< 0.028)
[2022-03-03 17:15] LABS: Magnesium 1.9 mg/dL (1.6-2.6); Phosphorus 3.5 mg/dL (2.3-4.7)
[2022-03-03] MEDS ORDERED: Magnesium 2 GM/50 ML(in water) 2 GM in Premix Bag 1 BAG IVPB SCH (17:30)
[2022-03-03] MEDS ORDERED: Calcium Carbonate 500 MG ChewTAB PO PRN (17:54)
[2022-03-03] MEDS ORDERED: Acetaminophen 325 MG TAB PO PRN (17:54)
[2022-03-03] MEDS ORDERED: Senokot S 8.6-50 MG TAB PO PRN (17:54)
[2022-03-03] MEDS ORDERED: Morphine 2 MG/ML VIAL SLOW IVP PRN (18:11)
[2022-03-03] MEDS ORDERED: Nitroglycerin 0.4 MG TAB (25 Tab Bottle) SL PRN (18:11)
[2022-03-03] MEDS ORDERED: Aspirin 325 mg Enteric Coated Tablet PO SCH (18:30)
[2022-03-03] MEDS: Sodium Chloride 0.9% 1,000 ML IV SCH (18:32)
[2022-03-03] MEDS ORDERED: Labetalol HCl 100 MG/20 ML VIAL SLOW IVP PRN (18:34)
[2022-03-03] MEDS ORDERED: Dextrose 5% in Water 1,000 ML IV PRN (18:39)
[2022-03-03] MEDS ORDERED: Insulin Regular 300 UNITS/3 ML VIAL SC PRN ×2 (18:39)
[2022-03-03] MEDS ORDERED: Dextrose 50% Abboject 50 ML SYRINGE SLOW IVP PRN (18:39)
[2022-03-03 18:43] VITALS: BMI 26.9
[2022-03-03] MEDS ORDERED: Loratadine 10 MG TAB PO SCH (18:45)
[2022-03-03] MEDS: Nitroglycerin 2% Ointment 1 INCH/1 GM Packet TOP SCH (20:34)
[2022-03-03] MEDS: Atorvastatin Calcium 40 MG TAB PO SCH (20:35)
[2022-03-03] MEDS: Primidone 250 MG TAB PO SCH (20:37)
[2022-03-03] MEDS: Senokot S 8.6-50 MG TAB PO SCH (20:37)
[2022-03-03] MEDS: Tamsulosin HCl 0.4 MG CAP PO SCH (20:38)
[2022-03-04 00:15] LABS: SARS-CoV-2 PCR by NAA Not Detected (NotDetected)
[2022-03-04] MEDS: Nitroglycerin 2% Ointment 1 INCH/1 GM Packet TOP SCH ×3 (03:18→18:07)
[2022-03-04 04:54] LABS: #Basophils 0.1 thou/uL (0.0-0.2); #Eosinphils 0.8 thou/uL (0.0-0.7); #Lymphocytes 2.6 thou/uL (1.20-3.40); #Monocytes 1.1 thou/uL (0.11-0.59); #Neutrophils 4.2 thou/uL (1.40-6.50); %Basophils 0.9 % (0.0-1.0); %Eosinophils 8.6 % (0.0-10.0); %Lymphocytes 30.1 % (21.0-51.0); %Monocytes 12.5 % (0.0-10.0); %Neutrophils 47.9 % (42.0-75.0); Hemoglobin 11.1 g/dL (14.0-18.0); Mean Corpuscular HGB CONC 32.2 g/dL (32.0-36.0); Mean Corpuscular Hemoglobin 26.2 pg (27.0-31.0); Mean Corpuscular Volume 81.3 fL (78.0-98.0); Mean Platelet Volume 7.8 fL (7.4-10.4); Platelet Count 285 thou/uL (130-400); RBC Distribution Width 14.4 % (11.5-14.5); Red Blood Cell (RBC) Count 4.24 mill/uL (4.70-6.10); White Blood Cell (WBC) Count 8.7 thou/uL (4.8-10.8)
[2022-03-04 04:57] LABS: Hemoglobin A1c 6.1 % (4.0-6.0)
[2022-03-04 05:13] LABS: Anion Gap 13 mmol/L (10-20); BUN (Urea Nitrogen) 12 mg/dL (8.4-25.7); Calc. Creatinine Clearance 60 mL/min (70-130); Calcium 8.7 mg/dL (7.8-10.44); Carbon Dioxide 25 mmol/L (23-31); Cardiac Risk 2.2 (Less than 4.5); Chloride 100 mmol/L (98-107); Cholesterol 164 mg/dl (< 200 Desired); Glucose 120 mg/dL (83-110); HDL Cholesterol 75 mg/dL (>60 Neg Risk); LDL Cholesterol, Calculated 75 mg/dL; Magnesium 2.3 mg/dL (1.6-2.6); Potassium 4.8 mmol/L (3.5-5.1); Sodium 133 mmol/L (136-145); Triglycerides 70 mg/dL (Less than 150)
[2022-03-04] MEDS ORDERED: Communication Order-Pharmacy FS SCH (08:15)
[2022-03-04] MEDS ORDERED: Midazolam HCl 2 mg/2 ml Vial ONE (08:50)
[2022-03-04] MEDS ORDERED: Fentanyl 100 MCG/2 ML VIAL ONE (08:50)
[2022-03-04] MEDS ORDERED: Finasteride 5 MG TAB PO SCH (09:00)
[2022-03-04] MEDS ORDERED: Loratadine 10 MG TAB PO SCH (09:00)
[2022-03-04] MEDS ORDERED: Aspirin 325 mg Enteric Coated Tablet PO SCH (09:00)
[2022-03-04] MEDS ORDERED: Iopamidol 370 76% 100 ML VIAL ONE (09:01)
[2022-03-04] MEDS ORDERED: Lidocaine 1% (PF) 30 ML VIAL ONE (09:17)
[2022-03-04] MEDS: Lisinopril 10 MG TAB PO SCH (09:25)
[2022-03-04] MEDS: Sodium Chloride 0.9% 1,000 ML IV SCH (09:25)
[2022-03-04] MEDS: Primidone 250 MG TAB PO SCH ×2 (09:26→21:24)
[2022-03-04] MEDS: Senokot S 8.6-50 MG TAB PO SCH ×2 (09:26→21:06)
[2022-03-04] MEDS ORDERED: Heparin 25,000 units/D5W 500 ML ONE (09:29)
[2022-03-04] MEDS ORDERED: Aspirin 81 mg Enteric Coated Tablet PO SCH (10:23)
[2022-03-04] MEDS ORDERED: Communication Order-Pharmacy FS ONE (12:21)
[2022-03-04 13:38] LABS: Troponin I 3.722 ng/mL (< 0.028)
[2022-03-04] MEDS ORDERED: Heparin 25,000 units/D5W 500 ML IV SCH (17:45)
[2022-03-04] MEDS ORDERED: Heparin 10,000 UNITS/ 10 ML VIAL SLOW IVP SCH (17:45)
[2022-03-04] MEDS: Atorvastatin Calcium 40 MG TAB PO SCH (21:06)
[2022-03-04] MEDS: Tamsulosin HCl 0.4 MG CAP PO SCH (21:07)
[2022-03-05 01:07] LABS: PTT 126.7 sec (22.9-36.1)
[2022-03-05] MEDS: Lisinopril 10 MG TAB PO SCH (05:21)
[2022-03-05] MEDS ORDERED: Albumin 5% 500 ML ONE (06:15)
[2022-03-05] MEDS ORDERED: Heparin 10,000 UNITS/1 ML VIAL 30,000 UNITS in Sodium Chloride 0.9% 1,000 ML FS SCH (06:30)
[2022-03-05] MEDS ORDERED: Midazolam HCl 5 mg/5 ml Vial ONE (07:12)
[2022-03-05] MEDS ORDERED: Fentanyl 250 MCG/5 ML VIAL ONE (07:13)
[2022-03-05] MEDS ORDERED: Potassium Chloride 60 MEQ/30 ML VIAL ONE (07:20)
[2022-03-05] MEDS ORDERED: DOPamine 400 MG/10 ML VIAL ONE (07:20)
[2022-03-05] MEDS ORDERED: Protamine Sulfate 50 MG/5 ML VIAL ONE (07:20)
[2022-03-05] MEDS ORDERED: Magnesium Sulfate 1 GM/2 ML VIAL ONE (07:20)
[2022-03-05] MEDS ORDERED: Vecuronium 10 MG VIAL ONE (07:20)
[2022-03-05] MEDS ORDERED: Heparin 30,000 units/30 ml VIAL ONE (07:20)
[2022-03-05] MEDS ORDERED: Thrombin 5000 UNITS/5 ML VIAL ONE (07:20)
[2022-03-05] MEDS ORDERED: Heparin 5,000 UNITS/ML VIAL ONE (07:20)
[2022-03-05] MEDS ORDERED: Lidocaine 2% PF 100 mg/5 ml Syringe ONE (07:20)
[2022-03-05] MEDS ORDERED: Cardioplegic Soln 1,000 ML BAG ONE (07:20)
[2022-03-05] MEDS ORDERED: Esmolol 100 MG/10 ML VIAL ONE (07:20)
[2022-03-05] MEDS ORDERED: Sodium Bicarb 50 MEQ/50 ML Abboject 8.4% SYRINGE ONE (07:20)
[2022-03-05] MEDS ORDERED: Mannitol 12.5 GM/50 ML ONE (07:20)
[2022-03-05] MEDS ORDERED: Calcium Chloride 1 GM/10 ML Abboject SYRINGE ONE (07:20)
[2022-03-05] MEDS ORDERED: Papaverine 60 MG/2 ML VIAL ONE (07:20)
[2022-03-05] MEDS ORDERED: PROPOFOL 200 MG/20 ML VIAL ONE (07:20)
[2022-03-05] MEDS ORDERED: Aminocaproic Acid 5 GM/20 ML VIAL ONE (07:20)
[2022-03-05] MEDS ORDERED: Clindamycin/D5W 900 mg/50 ml Premix Bag ONE (07:23)
[2022-03-05] MEDS ORDERED: PHENYLEPHRINE-NS 100 MCG/ML 10 ML SYRINGE ONE (09:55)
[2022-03-05] MEDS ORDERED: Phenylephrine 10 MG/ML VIAL ONE (09:55)
[2022-03-05] MEDS ORDERED: Albumin 5% 250 ML ONE (10:30)
[2022-03-05] MEDS ORDERED: Insulin Regular 300 UNITS/3 ML VIAL ONE (10:32)
[2022-03-05] MEDS ORDERED: Mag-Al 1200 mg/1200 mg/30 ML UDCUP PO PRN (11:06)
[2022-03-05] MEDS ORDERED: Bisacodyl 5 MG TAB PO PRN (11:06)
[2022-03-05] MEDS ORDERED: DOPamine 400 MG/D5W 250 ML 250 ML IVPB PRN (11:06)
[2022-03-05] MEDS ORDERED: Post-Op Insulin Drip Protocol IVPB ONE (11:06)
[2022-03-05] MEDS ORDERED: Nitroglycerin 50 MG/250 ML BOT 250 ML IVPB PRN (11:06)
[2022-03-05] MEDS ORDERED: niCARdipine 25 MG in Sodium Chloride 0.9% 250 ML 250 ML IVPB PRN (11:06)
[2022-03-05] MEDS ORDERED: Hetastarch 6% 500 ML 500 ML IVPB PRN (11:06)
[2022-03-05] MEDS ORDERED: Acetaminophen 325 MG TAB PO PRN (11:06)
[2022-03-05] MEDS ORDERED: Morphine 2 MG/ML VIAL SLOW IVP PRN (11:06)
[2022-03-05] MEDS ORDERED: Norepinephrine 8 MG/0.9% NS 250 ML IVPB PRN (11:06)
[2022-03-05] MEDS ORDERED: Bisacodyl 10 MG SUPP PR PRN (11:06)
[2022-03-05] MEDS ORDERED: Ondansetron PF 4 MG/2 ML Vial IVP PRN (11:06)
[2022-03-05] MEDS ORDERED: Guaifenesin DM 100-10/5 ML UDCUP PO PRN (11:06)
[2022-03-05] MEDS ORDERED: hydrALAZINE 20 MG/ML VIAL SLOW IVP PRN (11:06)
[2022-03-05] MEDS: Lactated Ringer's 1,000 ML IV SCH (11:15)
[2022-03-05 11:27] LABS: Actual Bicarbonate (HCO3a) 19.9 mEq/L (22-28); Base Excess (BEa) -5.1 mEq/L (-2.0 to +3.0); CO2 Tension 36.8 mmHg (35.0-45.0); Carboxyhemoglobin (COHb) 0.2 gm% (0.0-3.0); Hemoglobin (Hb) 11.4 g/dL (14.0-18.0); O2 Tension (PaO2), arterial 66.7 mmHg (> 60.0); Potassium - ABG Lab 3.93 mmol/L (3.70-5.30); pH, Arterial 7.35 (7.35-7.45)
[2022-03-05] MEDS ORDERED: HUMULIN R 100 UNITS in Sodium Chloride 0.9% 100 ML IVPB SCH (11:30)
[2022-03-05] MEDS ORDERED: Insulin Regular 300 UNITS/3 ML VIAL SC PRN (11:30)
[2022-03-05] MEDS ORDERED: Dextrose 50% Abboject 50 ML SYRINGE SLOW IVP PRN (11:30)
[2022-03-05] MEDS ORDERED: Dextrose 5% in Water 1,000 ML IV PRN (11:30)
[2022-03-05 11:32] LABS: Puncture Site Arterial Line
[2022-03-05 11:48] LABS: Hemoglobin 10.6 g/dL (14.0-18.0); Mean Corpuscular HGB CONC 30.9 g/dL (32.0-36.0); Mean Corpuscular Hemoglobin 25.3 pg (27.0-31.0); Mean Corpuscular Volume 81.8 fL (78.0-98.0); Mean Platelet Volume 7.7 fL (7.4-10.4); Platelet Count 176 thou/uL (130-400); RBC Distribution Width 14.4 % (11.5-14.5); White Blood Cell (WBC) Count 21.9 thou/uL (4.8-10.8)
[2022-03-05 11:51] LABS: INR-International Normal Ratio 1.3; Prothrombin Time 16.6 sec (12.0-14.7)
[2022-03-05 11:53] LABS: PTT 36.5 sec (22.9-36.1)
[2022-03-05 12:03] LABS: Band 22 % (5-11); Lymphocytes 4 % (21-51); MDiff Complete? YES; Monocytes 8 % (0-10); Neutrophil 66 % (42-75); Platelet Morphology Comment Appears Adequate; Polychromasia SLIGHT = 2-3 cells (100X) (0-2/hpf)
[2022-03-05 12:04] LABS: Anion Gap 12 mmol/L (10-20); BUN (Urea Nitrogen) 8 mg/dL (8.4-25.7); Calc. Creatinine Clearance 72 mL/min (70-130); Calcium 8.7 mg/dL (7.8-10.44); Carbon Dioxide 20 mmol/L (23-31); Chloride 107 mmol/L (98-107); Glucose 160 mg/dL (83-110); Potassium 3.9 mmol/L (3.5-5.1); Sodium 135 mmol/L (136-145)
[2022-03-05] MEDS: Potassium Chloride 20 MEQ/100 ML PREMIX BAG IVPB PRN ×2 (12:40→18:19)
[2022-03-05] MEDS: Clindamycin/D5W 900 MG in Premix Bag 1 BAG IVPB SCH ×2 (14:13→19:47)
[2022-03-05 17:43] LABS: Hemoglobin 9.8 g/dL (14.0-18.0)
[2022-03-05 18:59] LABS: Actual Bicarbonate (HCO3a) 20.5 mEq/L (22-28); Base Excess (BEa) -4.7 mEq/L (-2.0 to +3.0); CO2 Tension 38.4 mmHg (35.0-45.0); Calcium, Ionized (arterial) 1.16 mmol/L (1.12-1.30); Carboxyhemoglobin (COHb) 0.2 gm% (0.0-3.0); Hemoglobin (Hb) 10.8 g/dL (14.0-18.0); O2 Tension (PaO2), arterial 90.8 mmHg (> 60.0); Potassium - ABG Lab 3.95 mmol/L (3.70-5.30); Puncture Site Arterial Line; pH, Arterial 7.35 (7.35-7.45)
[2022-03-05] MEDS: Ketorolac Tromethamine 30 MG/ML VIAL IVP SCH (19:47)
[2022-03-05] MEDS: Atorvastatin Calcium 20 MG TAB PO SCH (19:48)
[2022-03-05] MEDS ORDERED: Famotidine/PF 20 mg/2ml Vial SLOW IVP SCH (21:00)
[2022-03-05] MEDS: Fosphenytoin Sodium 100 MG in Sodium Chloride 0.9% 100 ML IVPB SCH (22:23)
[2022-03-06] MEDS: Ketorolac Tromethamine 30 MG/ML VIAL IVP SCH (02:06)
[2022-03-06] MEDS: Clindamycin/D5W 900 MG in Premix Bag 1 BAG IVPB SCH ×2 (02:07→07:56)
[2022-03-06] MEDS: Lactated Ringer's 1,000 ML IV SCH ×2 (03:14→13:31)
[2022-03-06 04:35] LABS: #Lymphocytes 0.9 thou/uL (1.20-3.40); #Monocytes 1.7 thou/uL (0.11-0.59); #Neutrophils 13.5 thou/uL (1.40-6.50); %Basophils 0.1 % (0.0-1.0); %Eosinophils 0.2 % (0.0-10.0); %Lymphocytes 5.8 % (21.0-51.0); %Monocytes 10.4 % (0.0-10.0); %Neutrophils 83.5 % (42.0-75.0); Hemoglobin 9.6 g/dL (14.0-18.0); Mean Corpuscular HGB CONC 31.7 g/dL (32.0-36.0); Mean Platelet Volume 8.4 fL (7.4-10.4); Platelet Count 187 thou/uL (130-400); RBC Distribution Width 14.3 % (11.5-14.5); Red Blood Cell (RBC) Count 3.71 mill/uL (4.70-6.10); White Blood Cell (WBC) Count 16.1 thou/uL (4.8-10.8)
[2022-03-06 04:46] LABS: Anion Gap 12 mmol/L (10-20); BUN (Urea Nitrogen) 10 mg/dL (8.4-25.7); Calc. Creatinine Clearance 59 mL/min (70-130); Calcium 8.5 mg/dL (7.8-10.44); Carbon Dioxide 23 mmol/L (23-31); Chloride 107 mmol/L (98-107); Glucose 122 mg/dL (83-110); Potassium 4.5 mmol/L (3.5-5.1); Sodium 137 mmol/L (136-145)
[2022-03-06] MEDS ORDERED: Dextrose 50% Abboject 50 ML SYRINGE SLOW IVP PRN (06:28)
[2022-03-06] MEDS ORDERED: HumaLOG 300 UNITS/3 ML VIAL SC PRN (06:28)
[2022-03-06] MEDS ORDERED: Dextrose 5% in Water 1,000 ML IV PRN (06:28)
[2022-03-06] MEDS: Fosphenytoin Sodium 100 MG in Sodium Chloride 0.9% 100 ML IVPB SCH ×2 (09:02→17:02)
[2022-03-06] MEDS: Aspirin 325 MG TAB PO SCH (10:29)
[2022-03-06] MEDS: Polyethylene Glycol 3350 17 GM Packet PO SCH (10:29)
[2022-03-06] MEDS: Famotidine 20 MG TAB PO SCH ×2 (10:29→20:39)
[2022-03-06] MEDS ORDERED: Insulin Glargine 30 UNITS/0.3 ML VIAL SC PRN (11:20)
[2022-03-06] MEDS: traMADol HCl 50 MG TAB PO PRN ×3 (11:34→22:28)
[2022-03-06] MEDS: Tamsulosin HCl 0.4 MG CAP PO SCH (20:39)
[2022-03-06] MEDS: Atorvastatin Calcium 20 MG TAB PO SCH (20:39)
[2022-03-07] MEDS: Fosphenytoin Sodium 100 MG in Sodium Chloride 0.9% 100 ML IVPB SCH ×3 (01:26→17:17)
[2022-03-07] MEDS: Lactated Ringer's 1,000 ML IV SCH (03:43)
[2022-03-07 06:27] LABS: Hemoglobin 9.1 g/dL (14.0-18.0); Mean Corpuscular HGB CONC 31.5 g/dL (32.0-36.0); Mean Corpuscular Hemoglobin 26.2 pg (27.0-31.0); Mean Corpuscular Volume 83.3 fL (78.0-98.0); Mean Platelet Volume 8.5 fL (7.4-10.4); Platelet Count 210 thou/uL (130-400); RBC Distribution Width 15.3 % (11.5-14.5); Red Blood Cell (RBC) Count 3.47 mill/uL (4.70-6.10); White Blood Cell (WBC) Count 20.4 thou/uL (4.8-10.8)
[2022-03-07 06:39] LABS: Anion Gap 15 mmol/L (10-20); BUN (Urea Nitrogen) 21 mg/dL (8.4-25.7); Calc. Creatinine Clearance 46 mL/min (70-130); Calcium 8.5 mg/dL (7.8-10.44); Carbon Dioxide 18 mmol/L (23-31); Chloride 107 mmol/L (98-107); Glucose 173 mg/dL (83-110); Potassium 5.3 mmol/L (3.5-5.1); Sodium 135 mmol/L (136-145)
[2022-03-07 06:48] LABS: Band 12 % (5-11); Lymphocytes 13 % (21-51); MDiff Complete? YES; Monocytes 10 % (0-10); Neutrophil 65 % (42-75)
[2022-03-07] MEDS ORDERED: Nitroglycerin 0.4 MG TAB (25 Tab Bottle) SL PRN (07:53)
[2022-03-07] MEDS ORDERED: Mineral Oil ENEMA PR PRN (07:53)
[2022-03-07] MEDS ORDERED: Dextrose 50% Abboject 50 ML SYRINGE SLOW IVP PRN (08:15)
[2022-03-07] MEDS ORDERED: Dextrose 5% in Water 1,000 ML IV PRN (08:15)
[2022-03-07] MEDS ORDERED: Insulin Regular 300 UNITS/3 ML VIAL SC PRN (08:15)
[2022-03-07] MEDS ORDERED: Furosemide 40 MG TAB PO SCH (09:00)
[2022-03-07] MEDS: Polyethylene Glycol 3350 17 GM Packet PO SCH (09:12)
[2022-03-07] MEDS: Aspirin 325 MG TAB PO SCH (09:13)
[2022-03-07] MEDS: Metoprolol Tartrate 25 MG TAB PO SCH ×2 (09:13→21:46)
[2022-03-07 20:20] VITALS: TEMP 97.4
[2022-03-07] MEDS ORDERED: Famotidine 20 MG TAB PO SCH (21:00)
[2022-03-07] MEDS: Atorvastatin Calcium 20 MG TAB PO SCH (21:46)
[2022-03-07] MEDS: Tamsulosin HCl 0.4 MG CAP PO SCH (21:46)
[2022-03-07 23:42] VITALS: BP 119/59
[2022-03-08] MEDS: Fosphenytoin Sodium 100 MG in Sodium Chloride 0.9% 100 ML IVPB SCH (01:27)
[2022-03-08] MEDS ORDERED: Atropine Sulfate 1 mg/10 ml Syringe ONE (02:35)
[2022-03-08] MEDS ORDERED: EPINEPHrine 1 MG/10 ML Abboject SYRINGE ONE ×3 (02:35→03:25)
[2022-03-08] MEDS ORDERED: Sodium Bicarb 50 MEQ/50 ML Abboject 8.4% SYRINGE ONE ×2 (02:35→03:25)
[2022-03-08] MEDS ORDERED: Calcium Chloride 1 GM/10 ML Abboject SYRINGE ONE (02:35)
[2022-03-08] MEDS ORDERED: Norepinephrine 8 MG/0.9% NS 250 ML ONE (02:53)
[2022-03-08] MEDS ORDERED: Norepinephrine 8 MG/0.9% NS 250 ML IVPB SCH (03:00)
[2022-03-08] MEDS ORDERED: Propofol 1,000 MG/100 ML VIAL IV ONE (03:15)
[2022-03-08] MEDS ORDERED: Ventilator Sedation Protocol 1 EACH FS SCH (03:15)
[2022-03-08] MEDS ORDERED: Propofol 1,000 MG/100 ML VIAL IV PRN (03:30)
[2022-03-08] MEDS ORDERED: Fentanyl BOLUS 250 ML IVPB PRN (03:30)
[2022-03-08] MEDS ORDERED: Lorazepam 2 MG/ML VIAL SLOW IVP PRN (03:30)
[2022-03-08] MEDS ORDERED: fentaNYL Citrate-0.9 % NaCl/PF 100 ML IV SCH (03:30)
[2022-03-08] MEDS ORDERED: DISCONTINUE PREVIOUS NARCOTIC PAIN MEDICATIONS AND BENZODIAZEPINES FS SCH (03:30)
[2022-03-08] MEDS ORDERED: Propofol BOLUS 1,000 MG/100 ML VIAL IV PRN (03:30)
[2022-03-08] MEDS ORDERED: Morphine 4 MG/ML VIAL SLOW IVP PRN (03:30)
[2022-03-08 03:32] LABS: Actual Bicarbonate (HCO3a) 14.2 mEq/L (22-28); Base Excess (BEa) -13.6 mEq/L (-2.0 to +3.0); CO2 Tension 41.6 mmHg (35.0-45.0); Calcium, Ionized (arterial) 1.14 mmol/L (1.12-1.30); Carboxyhemoglobin (COHb) 0.5 gm% (0.0-3.0); Hemoglobin (Hb) 7.7 g/dL (14.0-18.0); O2 Tension (PaO2), arterial 85.8 mmHg (> 60.0); Potassium - ABG Lab 5.46 mmol/L (3.70-5.30)
[2022-03-08 03:36] LABS: pH, Arterial 7.15 (7.35-7.45)
[2022-03-08 03:37] LABS: Puncture Site LRA
[2022-03-08] MEDS ORDERED: Furosemide 40 MG/4 ML VIAL SLOW IVP SCH (03:45)
[2022-03-08] MEDS ORDERED: Vasopressin 20 UNIT, Admixture Fee 1 EACH in Sodium Chloride 0.9% 50 ML IV SCH (03:45)
[2022-03-08] MEDS ORDERED: Sodium Bicarb 50 MEQ/50 ML VIAL ONE (03:55)
[2022-03-08 03:59] LABS: #Eosinphils 0.1 thou/uL (0.0-0.7); #Lymphocytes 4.2 thou/uL (1.20-3.40); #Monocytes 2.3 thou/uL (0.11-0.59); #Neutrophils 14.4 thou/uL (1.40-6.50); %Eosinophils 0.3 % (0.0-10.0); %Lymphocytes 20.1 % (21.0-51.0); %Monocytes 10.8 % (0.0-10.0); %Neutrophils 68.7 % (42.0-75.0); Anisocytosis SLIGHT = 6-15 cells (100X) (0-5/hpf); MDiff Complete? YES; Mean Corpuscular HGB CONC 29.5 g/dL (32.0-36.0); Mean Corpuscular Hemoglobin 26.5 pg (27.0-31.0); Mean Corpuscular Volume 89.7 fL (78.0-98.0); Mean Platelet Volume 9.7 fL (7.4-10.4); Platelet Count 103 thou/uL (130-400); Platelet Morphology Comment Appears Decreased; Red Blood Cell (RBC) Count 3.04 mill/uL (4.70-6.10); White Blood Cell (WBC) Count 20.9 thou/uL (4.8-10.8)
[2022-03-08] MEDS ORDERED: EPINEPHrine 4 MG in Dextrose 5% in Water 250 ML IV SCH (04:00)
[2022-03-08] MEDS ORDERED: Sodium Bicarb 50 MEQ/50 ML VIAL IVP SCH (04:00)
[2022-03-08 04:05] LABS: ALT (SGPT) 2772 U/L (8-55); AST (SGOT) Greater than 3500 U/L (5-34); Albumin 3.1 g/dL (3.4-4.8); Alkaline Phosphatase 81 U/L (40-110); Anion Gap 31 mmol/L (10-20); BUN (Urea Nitrogen) 41 mg/dL (8.4-25.7); Bilirubin, Total 1.4 mg/dL (0.2-1.2); Calc. Creatinine Clearance 23 mL/min (70-130); Calcium 9.2 mg/dL (7.8-10.44); Carbon Dioxide 8 mmol/L (23-31); Chloride 105 mmol/L (98-107); Globulin 2.3 g/dL (2.4-3.5); Glucose 72 mg/dL (83-110); Potassium 6.3 mmol/L (3.5-5.1); Protein, Total 5.4 g/dL (5.8-8.1); Sodium 138 mmol/L (136-145)
[2022-03-08 04:06] LABS: Lactic Acid 14.5 mmol/L (0.5-2.2)
[2022-03-11 13:33] LABS: Actual Bicarbonate (HCO3a) 22.6 mEq/L (22-28); Analyzer IN Cardio OR; Base Excess (BEa) -1.4 mEq/L (-2.0 to +3.0); CO2 Tension 34.8 mmHg (35.0-45.0); Calcium, Ionized (arterial) 0.98 mmol/L (1.12-1.30); Carboxyhemoglobin (COHb) 1.1 gm% (0.0-3.0); Hemoglobin (Hb) 7.6 g/dL (14.0-18.0); O2 Tension (PaO2), arterial 311.4 mmHg (> 60.0); Potassium - ABG Lab 4.78 mmol/L (3.70-5.30); pH, Arterial 7.43 (7.35-7.45)
[2022-03-11 13:33] LABS: Actual Bicarbonate (HCO3a) 21.2 mEq/L (22-28); Analyzer IN Cardio OR; Base Excess (BEa) -2.4 mEq/L (-2.0 to +3.0); Calcium, Ionized (arterial) 1.08 mmol/L (1.12-1.30); Carboxyhemoglobin (COHb) 0.6 gm% (0.0-3.0); Hemoglobin (Hb) 8.6 g/dL (14.0-18.0); O2 Tension (PaO2), arterial 174.1 mmHg (> 60.0); Potassium - ABG Lab 4.46 mmol/L (3.70-5.30); pH, Arterial 7.44 (7.35-7.45)
[2022-03-11 13:33] LABS: Actual Bicarbonate (HCO3a) 18.9 mEq/L (22-28); Analyzer IN Cardio OR; Base Excess (BEa) -5.6 mEq/L (-2.0 to +3.0); CO2 Tension 33.3 mmHg (35.0-45.0); Calcium, Ionized (arterial) 1.23 mmol/L (1.12-1.30); Carboxyhemoglobin (COHb) 0.6 gm% (0.0-3.0); Hemoglobin (Hb) 10.3 g/dL (14.0-18.0); O2 Tension (PaO2), arterial 117.5 mmHg (> 60.0); Potassium - ABG Lab 3.82 mmol/L (3.70-5.30); pH, Arterial 7.37 (7.35-7.45)
[2022-03-11 13:34] LABS: Actual Bicarbonate (HCO3v) 25 mEq/L (22-28); Analyzer IN Cardio OR; Base Excess 0.2 mEq/L (-2.0 to +3.0); Calcium, Ionized (venous) 0.96 mmol/L (1.16-1.32); Chloride (VBG) 102 mmol/L (98-106); Hemoglobin (Hb) 7.5 g/dL (12.6-17.4); Potassium (VBG) 4.79 mmol/L (3.70-5.30); Sodium 130.5 mmol/L (133-146); pH (venous) 7.41 (7.32-7.43)
[2022-03-11 13:34] LABS: Actual Bicarbonate (HCO3a) 23.4 mEq/L (22-28); Analyzer IN Cardio OR; Base Excess (BEa) 0.1 mEq/L (-2.0 to +3.0); CO2 Tension 31.4 mmHg (35.0-45.0); Calcium, Ionized (arterial) 0.91 mmol/L (1.12-1.30); Carboxyhemoglobin (COHb) 1.6 gm% (0.0-3.0); Hemoglobin (Hb) 6.2 g/dL (14.0-18.0); O2 Tension (PaO2), arterial 393.9 mmHg (> 60.0); Potassium - ABG Lab 4.87 mmol/L (3.70-5.30); pH, Arterial 7.49 (7.35-7.45)
[2022-03-11 13:35] LABS: Actual Bicarbonate (HCO3a) 19.7 mEq/L (22-28); Analyzer IN Cardio OR; Base Excess (BEa) -4.3 mEq/L (-2.0 to +3.0); CO2 Tension 32.1 mmHg (35.0-45.0); Calcium, Ionized (arterial) 1.09 mmol/L (1.12-1.30); Carboxyhemoglobin (COHb) 0.5 gm% (0.0-3.0); Hemoglobin (Hb) 9.6 g/dL (14.0-18.0); O2 Tension (PaO2), arterial 383.7 mmHg (> 60.0); Potassium - ABG Lab 3.69 mmol/L (3.70-5.30); pH, Arterial 7.41 (7.35-7.45)
[2022-03-11 13:35] LABS: Actual Bicarbonate (HCO3a) 22.7 mEq/L (22-28); Analyzer IN Cardio OR; Base Excess (BEa) -0.4 mEq/L (-2.0 to +3.0); CO2 Tension 31.8 mmHg (35.0-45.0); Calcium, Ionized (arterial) 1.14 mmol/L (1.12-1.30); Carboxyhemoglobin (COHb) 1.1 gm% (0.0-3.0); Hemoglobin (Hb) 10.9 g/dL (14.0-18.0); O2 Tension (PaO2), arterial 301.9 mmHg (> 60.0); Potassium - ABG Lab 3.79 mmol/L (3.70-5.30); Puncture Site Arterial Line; pH, Arterial 7.47 (7.35-7.45)
[2022-03-11 13:36] LABS: Puncture Site Arterial Line
[2022-03-11 13:36] LABS: Puncture Site Arterial Line
[2022-03-11 13:37] LABS: Puncture Site Arterial Line
[2022-03-11 13:37] LABS: Puncture Site Arterial Line
[2022-03-11 13:38] LABS: Puncture Site Arterial Line
== END 2022-03-08 04:03 | disposition expired | DRG 233 ==
LOC: ERS 12:17 → 2NO 16:21 → CCU 03-04 09:05 → 2NO 03-07 15:34 → CCU 03-08 02:58
PROVIDERS: ADMIT Internal Medicine; ATTEND Internal Medicine
PROC: 4A023N7 Measurement of Cardiac Sampling and Pressure, Left Heart, Percutaneous Approach (ICD-10-PCS; 2022-03-04)
PROC: B2111ZZ Fluoroscopy of Multiple Coronary Arteries using Low Osmolar Contrast (ICD-10-PCS; 2022-03-04)
PROC: B2151ZZ Fluoroscopy of Left Heart using Low Osmolar Contrast (ICD-10-PCS; 2022-03-04)
PROC: 021109W Bypass Coronary Artery, Two Arteries from Aorta with Autologous Venous Tissue, Open Approach (ICD-10-PCS; principal; 2022-03-05)
PROC: 02100Z9 Bypass Coronary Artery, One Artery from Left Internal Mammary, Open Approach (ICD-10-PCS; 2022-03-05)
PROC: 06BP3ZZ Excision of Right Saphenous Vein, Percutaneous Approach (ICD-10-PCS; 2022-03-05)
PROC: 30233N1 Transfusion of Nonautologous Red Blood Cells into Peripheral Vein, Percutaneous Approach (ICD-10-PCS; 2022-03-05)
PROC: 5A1221Z Performance of Cardiac Output, Continuous (ICD-10-PCS; 2022-03-05)
PROC: 02L70CK Occlusion of Left Atrial Appendage with Extraluminal Device, Open Approach (ICD-10-PCS; 2022-03-05)
PROC: 0D9670Z Drainage of Stomach with Drainage Device, Via Natural or Artificial Opening (ICD-10-PCS; 2022-03-05)
PROC: 5A12012 Performance of Cardiac Output, Single, Manual (ICD-10-PCS; 2022-03-08)
PROC: 3E033XZ Introduction of Vasopressor into Peripheral Vein, Percutaneous Approach (ICD-10-PCS; 2022-03-08)
PROC: 5A2204Z Restoration of Cardiac Rhythm, Single (ICD-10-PCS; 2022-03-08)
PROC: 0BH17EZ Insertion of Endotracheal Airway into Trachea, Via Natural or Artificial Opening (ICD-10-PCS; 2022-03-08)
PROC: 5A1935Z Respiratory Ventilation, Less than 24 Consecutive Hours (ICD-10-PCS; 2022-03-08)
DX: I21.4 Non-ST elevation (NSTEMI) myocardial infarction (principal); Z20.822 Contact with and (suspected) exposure to COVID-19; Z66 Do not resuscitate; J96.00 Acute respiratory failure, unspecified whether with hypoxia or hypercapnia; E87.1 Hypo-osmolality and hyponatremia; N17.9 Acute kidney failure, unspecified; E87.2 Acidosis; I25.10 Atherosclerotic heart disease of native coronary artery without angina pectoris; K21.9 Gastro-esophageal reflux disease without esophagitis; G40.909 Epilepsy, unspecified, not intractable, without status epilepticus; N40.0 Benign prostatic hyperplasia without lower urinary tract symptoms; F32.A Depression, unspecified; M19.90 Unspecified osteoarthritis, unspecified site; G25.0 Essential tremor; F41.9 Anxiety disorder, unspecified; Z60.2 Problems related to living alone; E83.42 Hypomagnesemia; J30.2 Other seasonal allergic rhinitis; N18.2 Chronic kidney disease, stage 2 (mild); E11.22 Type 2 diabetes mellitus with diabetic chronic kidney disease; I12.9 Hypertensive chronic kidney disease with stage 1 through stage 4 chronic kidney disease, or unspecified chronic kidney disease; D63.1 Anemia in chronic kidney disease; E04.1 Nontoxic single thyroid nodule; F03.90 Unspecified dementia, unspecified severity, without behavioral disturbance, psychotic disturbance, mood disturbance, and anxiety; E11.65 Type 2 diabetes mellitus with hyperglycemia; I49.3 Ventricular premature depolarization; E78.5 Hyperlipidemia, unspecified; I45.10 Unspecified right bundle-branch block; R57.0 Cardiogenic shock; I48.91 Unspecified atrial fibrillation; I95.9 Hypotension, unspecified; I46.2 Cardiac arrest due to underlying cardiac condition; I49.01 Ventricular fibrillation; I69.121 Dysphasia following nontraumatic intracerebral hemorrhage; I69.128 Other speech and language deficits following nontraumatic intracerebral hemorrhage; Z87.891 Personal history of nicotine dependence; Z78.1 Physical restraint status; Z28.21 Immunization not carried out because of patient refusal; Z88.0 Allergy status to penicillin; Z79.899 Other long term (current) drug therapy; Z79.84 Long term (current) use of oral hypoglycemic drugs; Z90.49 Acquired absence of other specified parts of digestive tract; Z98.890 Other specified postprocedural states
CPT/HCPCS: 36415; 36416; 36430; 36600; 71045; 71275; 74174; 80048; 80053; 80061; 80185; 82553; 82805; 82947; 83036; 83605; 83690; 83735; 84100; 84443; 84484; 85025; 85610; 85730; 86850; 86900; 86901; 93005; 93010; 93306; 93458; 93880; 94002; 96372; 99152; C1713; C1751; J0171; J0461; J1265; J1644; J1650; J1815; J1885; J1940; J2001; J2150; J2250; J2270; J2370; J2440; J2704; J2720; J3010; J3370; J3475; J3480; J3490; J7050; J7120; P9016; P9045; Q2009; Q9967; S0017; S0028; U0003; U0005